=== PATIENT | male | born 1935 | race African-American/Black ===

== ENCOUNTER 2021-03-04 09:27 | Emergency (ER) | payer OTHER, MEDICAID ==
[~2021-03-04] VITALS: Ht 185.4 cm; Wt 77.2 kg
[2021-03-04] MEDS ORDERED: IV NORMAL SALINE 1000ML BAG 1,000 ML IV ONE (10:00)
--- NOTE | 2021-03-04 10:26 | RAD ---
EXAMINATION: CT HEAD/BRAIN WO CLINICAL HISTORY: Altered mental status TECHNIQUE: Serial axial images without IV contrast were obtained from the vertex to the foramen magnu m. CT Dose Reduction Employed: One or more of the following individualized dose reduction techniques sary e utilized for this examination: 1. Automated exposure control 2. Adjustment of the mA and/or kV ac cording to patient size 3. Use of iterative reconstruction technique. COMPARISON: None FINDINGS: Acute Change: No evidence of an acute infarct or other acute parenchymal process. Hemorrhage: No evidence of acute intracranial hemorrhage. Mass Lesion/Mass Effect: No evidence of intracranial mass or extraaxial fluid collection. No signific ant mass effect. Chronic Change: Scattered patchy foci of hypoattenuation in the supratentorial white matter, nonspeci fic but likely represents mild microvascular ischemia. Atherosclerotic calcification of the intracran ial portion of the bilateral internal carotid arteries with suspicion for calcified aneurysm on the l eft measuring up to 1.2 cm in diameter. Parenchyma: Mild generalized volume loss. Ventricles: Ventricular enlargement concordant with degree of parenchymal volume loss. Paranasal Sinuses and Skull Base: Visualized paranasal sinuses clear. Visualized skull base and soft tissues unremarkable. IMPRESSION: No evidence of acute intracranial abnormality. 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 Electronically signed by: Hudson Pruitt DO (03/04/2021 10:24 AM) [id number]
--- NOTE | 2021-03-04 10:30 | RAD ---
EXAMINATION: XR CHEST 1V CLINICAL HISTORY: Altered mental status EXAM DATE/TIME: 03/04/2021 10:05 AM COMPARISON: 02/17/2015 FINDINGS: Lines, Tubes, and Devices: None. Cardiomediastinal Silhouette: Normal heart size. Aortic atherosclerotic calcification. Lungs and Pleura: No evidence of focal airspace consolidation or pleural effusion. Mild left basilar subsegmental atelectasis and/or scarring. Pulmonary vasculature unremarkable. Bones and Soft Tissues: Degenerative changes in the thoracic spine. IMPRESSION: No evidence of acute cardiopulmonary abnormality. Electronically signed by: Hudson Pruitt DO (03/04/2021 10:27 AM) [id number]
--- NOTE | 2021-03-04 10:33 | PHYS DOC ---
Past Medical History Additional Past Medical Histor: hyperlipidemia, PVD Past Surgical History: No Surgical History General Adult EDM: Chief Complaint: ALTERED MENTAL STATUS HPI: HPI: Patient is a 85 year old male who presents with altered mental status. Staff states that patient ate breakfast and went back to his room, when he went to check on him he was unresponsive. Patient became alert and oriented during transport with EMS. Blood sugar was 118 with EMS. Patient is alert and oriented upon arrival. patient denies all complaints. Denies chest pain, shortness of breath, fever, recent illness. History of HTN, hyperlipidemia, CVA and TIA. Review of Systems: Review of Systems: ROS At least 10 ROS systems have been reviewed and are negative except as documented in the HPI. General: Negative except as outlined in HPI above. Skin: Negative except as outlined in HPI above. HEENT: Negative except as outlined in HPI above. Neck: Negative except as outlined in HPI above. Respiratory: Negative except as outlined in HPI above.. Cardiovascular: Negative except as outlined in HPI above. Abdomen: Negative except as outlined in HPI above. : Negative except as outlined in HPI above. Back/MSK: Negative except as outlined in HPI above. Neuro: Negative except as outlined in HPI above. Psych: Negative except as outlined in HPI above. Heart Score: C/O Chest Pain: No Risk Factors: Risk Factors: DM, Current or recent (<one month) smoker, HTN, HLP, family history of CAD, obesity. Risk Scores: Score 0 - 3: 2.5% MACE over next 6 weeks - Discharge Home Score 4 - 6: 20.3% MACE over next 6 weeks - Admit for Clinical Observation Score 7 - 10: 72.7% MACE over next 6 weeks - Early Invasive Strategies Current Medications: Current Medications Medications (Trade) Dose Ordered Sig/Argenis Start Time Stop Time Status Last Admin Dose Admin Sodium Chloride 1,000 ml @ 0 mls/hr 1X ONCE 03/04/21 10:00 03/04/21 10:01 DC Allergies: Allergies: Allergies Coded Allergies Type Severity Reaction Last Updated Verified No Known Drug Allergies 03/04/21 No Physical Exam: PE: Constitutional: Well developed, well nourished, no acute distress, non-toxic appearance. [] HENT: Normocephalic, atraumatic, bilateral external ears normal, oropharynx moist, no oral exudates, nose normal. [] Eyes: PERRLA, EOMI, conjunctiva normal, no discharge. [] Neck: Normal range of motion, no tenderness, supple, no stridor. [] Cardiovascular:Heart rate regular rhythm, no murmur [] Lungs & Thorax: Bilateral breath sounds clear to auscultation [] Abdomen: Bowel sounds normal, soft, no tenderness, no masses, no pulsatile masses. [] Skin: Warm, dry, no erythema, no rash. [] Back: No tenderness, no CVA tenderness. [] Extremities: No tenderness, no cyanosis, no clubbing, ROM intact, no edema. [] Neurologic: Alert and oriented X 3, normal motor function, normal sensory function, no focal deficits noted. [] Psychologic: Affect normal, judgement normal, mood normal. [] Current Patient Data: Labs: Laboratory Tests Test 03/04/21 09:59 Glucose (Fingerstick) 98 mg/dL (70-99) Vital Signs: Vital Signs Date Time Temp Pulse Resp B/P (MAP) Pulse Ox O2 Delivery O2 Flow Rate FiO2 03/04/21 09:40 97.6 90 16 158/89 (112) 98 Room Air 97.6 EKG: EKG: Sinus rhythm. Heart rate 64 bpm. []No STEMI. Read by Radiology/Procedures: Radiology/Procedures: []EXAMINATION: CT HEAD/BRAIN WO CLINICAL HISTORY: Altered mental status TECHNIQUE: Serial axial images without IV contrast were obtained from the vertex to the foramen magnum. CT Dose Reduction Employed: One or more of the following individualized dose reduction techniques were utilized for this examination: 1. Automated exposure control 2. Adjustment of the mA and/or kV according to patient size 3. Use of iterative reconstruction technique. COMPARISON: None FINDINGS: Acute Change: No evidence of an acute infarct or other acute parenchymal process. Hemorrhage: No evidence of acute intracranial hemorrhage. Mass Lesion/Mass Effect: No evidence of intracranial mass or extraaxial fluid collection. No significant mass effect. Chronic Change: Scattered patchy foci of hypoattenuation in the supratentorial white matter, nonspecific but likely represents mild microvascular ischemia. Atherosclerotic calcification of the intracranial portion of the bilateral internal carotid arteries with suspicion for calcified aneurysm on the left measuring up to 1.2 cm in diameter. Parenchyma: Mild generalized volume loss. Ventricles: Ventricular enlargement concordant with degree of parenchymal volume loss. Paranasal Sinuses and Skull Base: Visualized paranasal sinuses clear. Visualized skull base and soft tissues unremarkable. IMPRESSION: No evidence of acute intracranial abnormality. 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 Electronically signed by: Hudson Pruitt DO (03/04/2021 10:24 AM) [id number] Examination: CT angiography head with IV contrast COMPARISON:CT head noncontrast same day exam History: Aneurysm TECHNIQUE: Axial CT angiographic images of the head were performed with IV contrast. Coronal and sagittal 3-D MIP reformats are performed. Exposure: One or more of the following individualized dose reduction techniques were utilized for this examination: 1. Automated exposure control 2. Adjustment of the mA and/or kV according to patient size 3. Use of iterative reconstruction technique Stenosis calculations for CT, MR, and conventional angiography are based upon measurements of the distal ICA diameter in accordance with the NASCET methodology. Stenosis calculations for carotid ultrasound studies are derived from validated velocity criteria which are known to correlate with the NASCET methodology. FINDINGS: The bilateral internal carotid arteries are patent. There is a large aneurysm measuring 1.4 x 1.1 cm identified at the junction of the left internal carotid artery and the left middle cerebral artery. There is a small questionable 5 mm aneurysm identified at the junction of the right internal carotid artery with the right middle cerebral artery. The bilateral vertebral arteries, basilar artery appears patent. The bilateral posterior cerebral arteries are patent Moderate atherosclerotic calcifications identified in the bilateral cavernous internal carotid arteries. IMPRESSION: 1. 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 2. There is a small questionable 5 mm aneurysm identified at the junction of the right internal carotid artery with the right middle cerebral artery. Electronically signed by: Phillip Guerrero MD (03/04/2021 12:12 PM) [id number] Course & Med Decision Making: Course & Med Decision Making Pertinent Labs and Imaging studies reviewed. (See chart for details) [] 85-year-old male presents with altered mental status. Patient was found unresponsive in his room. Patient has history of TIA and CVA 15 years ago. patient became alert and oriented on transportation and he denied all complaints. Work-up in the ER consisted of urinalysis, labs, CT head. All labs unremarkable. Urinalysis unremarkable. 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 CTA head ordered for further evaluation CTA of head shows large aneurysm measuring 1.4 x 1.1 cm identified at the junction of the left internal carotid artery and the left middle cerebral artery. There is a small questionable 5 mm aneurysm identified at the junction of the right internal carotid artery with the right middle cerebral artery. Consulted Dr. Guzmán, with neurology who recommended further consult from Dr. Clayton. I spoke with Dr. Forrest Coleman's CURRICULUM DEVELOPMENT COORDINATOR who recommended patient be transferred to for higher level of care. Spoke with Miguel at transfer team. recommended patient be seen on an outpatient basis in his office for follow-up. Discussed results and plan of care with patient. Patient agrees with plan. Follow-up information given to patient and daughter. Patient is hemodynamically stable upon disposition. Dragon Disclaimer: Draghardik Disclaimer: This electronic medical record was generated, in whole or in part, using a voice recognition dictation system. Departure Departure Impression: Primary Impression: Altered mental status Qualified Codes: R41.82 - Altered mental status, unspecified Additional Impression: History of TIAs Disposition: HOME / SELF CARE / HOMELESS Condition: STABLE Referrals: [place] BENSON MD (PCP) Patient Instructions: Altered Mental Status Additional Instructions: You were seen in the emergency room for altered mental status. CT of your head showed some areas of concern which were discussed with [facility]. Dr. James, at [facility] would like you to follow-up outpatient at his office. I have attached his contact information for you. Return to the emergency room if you have worsening symptoms or concerns. [address] [place] [address] EMERGENCY DEPARTMENT GENERAL DISCHARGE INSTRUCTIONS Thank you for coming to [facility] Emergency Department (ED) today and trusting us with you care. We trust that you had a positive experience in our Emergency Department. If you wish to speak to the department management, you may call the Director at [phone]. YOUR FOLLOW UP INSTRUCTIONS ARE FOLLOWS: 1. Do you have a private Doctor? If you do not have a private doctor, please ask for a resource list of physicians or clinics that may be able to assist you with follow up care. 2. The Emergency Physicain has interpreted your x-rays. The X-Ray specialist will also review them. If there is a change in the findings, you will be notified in 48 hours when at all possible. 3. A lab test or culture has been done, your results will be reviewed and you will be notified if you need a change in treatment. ADDITIONAL INSTRUCTIONS AND INFORMATION: 1. Your care today has been supervised by a physician who is specially trained in emergency care. Many problems require more than one evaluation for a complete diagnosis and treatment. We recommend that you schedule your follow up appointment as recommended to ensure complete treatment of you illness or injury. If you are unable to obtain follow up care and continue to have a problem, or if your condition worsens, we recommend that you return to the ED. 2. We are not able to safely determine your condition over the phone nor are we able to give sound medical advice over the phone. For these safety reasons, if you call for medical advice we will ask you to come to the ED for further evaluation. 3. If you have any questions regarding these discharge instructions please call the ED at [phone]. SAFETY INFORMATION: In the interest of safety, wellness, and injury prevention; we encourage you to wear your sealbelt, if you smoke; quite smoking, and we encourage family to use a protective helmet for bicycling and other sporting events that present an increased risk for head injury. IF YOUR SYMPTOMS WORSEN OR NEW SYMPTOMS DEVELOP, OR YOU HAVE CONCERNS ABOUT YOUR CONDITION; OR IF YOUR CONDITION WORSENS WHILE YOU ARE WAITING FOR YOUR FOLLOW UP APPOINTMENT; EITHER CONTACT YOUR PRIMARY CARE DOCTOR, THE PHYSICIAN WHOSE NAME AND NUMBER YOU WERE GIVEN, OR RETURN TO THE ED IMMEDIATELY. NICOLETTE LEE APRN Mar 04, 2021 10:33
[2021-03-04 10:47] LABS: BASO # 0.1 x10^3/uL (0.0-0.2); BASO % 2 % (0-3); EOS # 0.1 x10^3/uL (0.0-0.7); EOS % 3 % (0-3); HEMATOCRIT 38.2 % (39.0-53.0); HEMOGLOBIN 12.6 g/dL (13.0-17.5); LYMPH # 1.6 x10^3/uL (1.0-4.8); LYMPH % 32 % (24-48); MEAN CORPUSCULAR HEMOGLOBIN 30 pg (25-35); MEAN CORPUSCULAR HGB CONC 33 g/dL (31-37); MEAN CORPUSCULAR VOLUME 92 fL (79-100); MONO # 0.5 x10^3/uL (0.0-1.1); MONO % 10 % (0-9); NEUT # 2.8 x10^3/uL (1.8-7.7); NEUT % 54 % (31-73); PLATELET COUNT 154 x10^3/uL (140-400); RED BLOOD COUNT 4.15 x10^6/uL (4.30-5.70); WHITE BLOOD COUNT 5.2 x10^3/uL (4.0-11.0)
[2021-03-04 10:53] LABS: CALCIUM 8.8 mg/dL (8.5-10.1); CREATININE 1.2 mg/dL (0.7-1.3); GFR 69.5
[2021-03-04 11:00] LABS: ALBUMIN 3.4 g/dL (3.4-5.0); ALBUMIN/GLOBULIN RATIO 0.7 (1.0-1.7); MAGNESIUM 2.1 mg/dL (1.8-2.4); TOTAL BILIRUBIN 0.9 mg/dL (0.2-1.0)
[2021-03-04] MEDS ORDERED: IOHEXOL 300 MG/ML 100ML VIAL. IV ONE (11:15)
[2021-03-04 12:12] LABS: BILIRUBIN,URINE NEGATIVE (NEG); CLARITY,URINE CLEAR; COLOR,URINE YELLOW; NITRITE,URINE NEGATIVE (NEG); PROTEIN,URINE NEGATIVE (NEG-TRACE)
--- NOTE | 2021-03-04 12:14 | RAD ---
Examination: CT angiography head with IV contrast COMPARISON:CT head noncontrast same day exam History: Aneurysm TECHNIQUE: Axial CT angiographic images of the head were performed with IV contrast. Coronal and sagi ttal 3-D MIP reformats are performed. Exposure: One or more of the following individualized dose reduction techniques were utilized for thi s examination: 1. Automated exposure control 2. Adjustment of the mA and/or kV according to patient size 3. Use of iterative reconstruction technique Stenosis calculations for CT, MR, and conventional angiography are based upon measurements of the dis mitul ICA diameter in accordance with the NASCET methodology. Stenosis calculations for carotid ultraso und studies are derived from validated velocity criteria which are known to correlate with the NASCET methodology. FINDINGS: The bilateral internal carotid arteries are patent. There is a large aneurysm measuring 1.4 x 1.1 cm identified at the junction of the left internal carotid artery and the left middle cerebral artery. T here is a small questionable 5 mm aneurysm identified at the junction of the right internal carotid a rtery with the right middle cerebral artery. The bilateral vertebral arteries, basilar artery appears patent. The bilateral posterior cerebral art eries are patent Moderate atherosclerotic calcifications identified in the bilateral cavernous internal carotid arteri es. IMPRESSION: 1. 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 2. There is a small questionable 5 mm aneurysm identified at the junction of the right internal sheriff tid artery with the right middle cerebral artery. Electronically signed by: Phillip Guerrero MD (03/04/2021 12:12 PM) [id number]
[2021-03-04 12:23] LABS: BACTERIA,URINE 0 /HPF (0-FEW); WBC,URINE 0 /HPF (0-4)
[2021-03-04 13:30] VITALS: BP 177/100
--- NOTE | 2021-03-04 16:42 | EKG ---
[facility] [address] [place] [address] Test Date: 2021-03-04 Test Time: 09:39:36 Pat Name: RUCHI COLINDRES Department: Room: Gender: M Parts Representative: : 1935 Requested By: NICOLETTE LEE Order Number: [id number] Reading MD: Sami Nassar MD Measurements Intervals [place] Rate: 64 P: 49 SD: 186 QRS: -27 QRSD: 96 T: 5 QT: 420 QTc: 433 Interpretive Statements SINUS RHYTHM LAD Electronically Signed On 03-05-2021 13:51:54 [employer] INST[employer]ER by Sami Nassar MD
== END 2021-03-04 15:25 | disposition home or self-care (01) ==
LOC: ER 09:27
DX: R41.82 Altered mental status, unspecified (principal); I10 Essential (primary) hypertension; Z86.73 Personal history of transient ischemic attack (TIA), and cerebral infarction without residual deficits
CPT/HCPCS: 36415; 70450; 70496; 71045; 80053; 81001; 82553; 82962; 83735; 83880; 84484; 85025; 93005; 99285; J7030; Q9967